=== PATIENT | female | born 1990 | race Caucasian/White ===

== ENCOUNTER 2019-09-21 19:41 | Emergency (ER) | payer OTHER ==
[2019-09-21] MEDS ORDERED: Adacel (T-DAP) 0.5 ML SYRINGE ONE (20:13)
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
== END 2019-09-21 21:17 | disposition home or self-care (01) ==
LOC: ERS 19:41
DX: S16.1XXA Strain of muscle, fascia and tendon at neck level, initial encounter (principal); S40.012A Contusion of left shoulder, initial encounter; S09.90XA Unspecified injury of head, initial encounter; Z23 Encounter for immunization; V59.9XXA Occupant (driver) (passenger) of pick-up truck or van injured in unspecified traffic accident, initial encounter
CPT/HCPCS: 70450; 72125; 90471; 90715

== ENCOUNTER 2020-03-16 15:50 | Outpatient (CLI) | payer OTHER ==
--- NOTE | 2020-03-16 16:39 | RAD ---
2 views of the abdomen: 03/16/2020 COMPARISON: None HISTORY: Constipation, right flank pain FINDINGS: Multiple calcifications in the left hemipelvis suggest phleboliths. The upper abdomen/lung bases are not fully evaluated on this examination limiting assessment for free intraperitoneal air. The bowel gas pattern appears nonobstructed. No significant calcification overlies expected region of either renal shadow. No acute osseous abnormality is evident. IMPRESSION: No acute findings. Follow-up CT may be beneficial if clinically warranted.
== END 2020-03-16 15:51 | disposition home or self-care (01) ==
LOC: BICRAD 15:50
PROVIDERS: ATTEND Physician Assistant Medical
DX: R10.11 Right upper quadrant pain (principal); K59.00 Constipation, unspecified
CPT/HCPCS: 74018; 74019

== ENCOUNTER 2020-04-27 08:07 | Outpatient (CLI) | payer OTHER ==
[2020-04-27 18:49] LABS: BHCG - Serum Negative (NEGATIVE)
[2020-04-27 18:50] LABS: Pregs Control Background? CLEAR/WHITE (CLR/WHITE); Pregs Control Bar Appear? YES (CONTROL BAR)
[2020-04-27 18:55] LABS: #Basophils 0.1 10x3/uL (0.0-0.2); #Eosinphils 0.1 10x3/uL (0.0-0.5); #Monocytes 0.3 10x3/uL (0.0-1.1); #Neutrophils 2.1 10x3/uL (1.5-8.4); %Basophils 1.2 % (0.0-2.0); %Lymphocytes 47.7 % (18.0-47.0); %Monocytes 6.7 % (0.0-10.0); %Neutrophils 43.2 % (40.0-75.0); Hemoglobin 13.4 g/dL (12.0-16.0); Mean Corpuscular HGB CONC 34.7 G/DL (32.0-36.0); Mean Corpuscular Hemoglobin 31.8 PG (27.0-33.0); Mean Corpuscular Volume 91.5 fl (80.0-100.0); Mean Platelet Volume 10.4 fl (7.4-10.4); Platelet Count 306 10x3/uL (130-400); RBC Distribution Width 11.9 % (11.5-14.5); Red Blood Cell (RBC) Count 4.22 10x6/uL (3.90-5.20); White Blood Cell (WBC) Count 4.9 10x3/uL (4.5-11.0)
[2020-04-27 18:56] LABS: ALT (SGPT) 16 U/L (8-55); AST (SGOT) 18 U/L (5-34); Albumin 4.5 g/dL (3.5-5.0); Alkaline Phosphatase 57 U/L (40-110); Bilirubin, Direct 0.2 mg/dL (0.1-0.3); Bilirubin, Total 0.6 mg/dL (0.2-1.2); Protein, Total 6.9 g/dL (6.0-8.3)
[2020-04-28 02:05] LABS: SARS-CoV-2 MS2 Positive; SARS-CoV-2 N Gene Negative; SARS-CoV-2 S Gene Negative; SARS-CoV-2 by NAA Not Detected (NotDetected); SARS-CoV-2 orf1ab Negative
== END 2020-04-27 08:08 | disposition home or self-care (01) ==
LOC: LABBT 08:07
PROVIDERS: ATTEND Surgery
DX: Z01.812 Encounter for preprocedural laboratory examination (principal); Z20.828 Contact with and (suspected) exposure to other viral communicable diseases; K80.20 Calculus of gallbladder without cholecystitis without obstruction
CPT/HCPCS: 80076; 84703; 85025; 87635; U0003

== ENCOUNTER 2020-05-01 07:32 | Day surgery (SDC) | payer OTHER ==
[2020-04-28 12:46] VITALS: BMI 23.6
[2020-05-01] MEDS ORDERED: cefOXitin Sodium/Dextrose 2 GM/50 ML BAG ONE (08:09)
[2020-05-01] MEDS ORDERED: Bupivacaine 0.25% HCL 30 ML VIAL ONE (09:13)
[2020-05-01] MEDS ORDERED: Lidocaine 1% w/Epinephrine 1:100K 20 ML VIAL ONE (09:13)
[2020-05-01] MEDS ORDERED: Midazolam HCl 2 mg/2 ml Vial ONE (09:13)
[2020-05-01] MEDS ORDERED: Fentanyl 100 MCG/2 ML VIAL ONE ×3 (09:13→11:26)
[2020-05-01] MEDS ORDERED: PROPOFOL 200 MG/20 ML VIAL ONE (10:02)
[2020-05-01] MEDS ORDERED: Rocuronium Bromide 10 MG/ML (10ML VIAL) ONE (10:02)
[2020-05-01] MEDS ORDERED: Lidocaine 1% PF 5 ML VIAL ONE (10:02)
[2020-05-01] MEDS ORDERED: PHENYLEPHRINE-NS 100 MCG/ML 10 ML SYRINGE ONE (10:02)
[2020-05-01] MEDS ORDERED: Dexamethasone 20 MG/5 ML VIAL ONE (10:02)
[2020-05-01] MEDS ORDERED: Ondansetron PF 4 MG/2 ML Vial ONE ×2 (10:02→10:59)
[2020-05-01] MEDS ORDERED: Ketorolac Tromethamine 30 MG/ML VIAL ONE (10:02)
[2020-05-01] MEDS ORDERED: Glycopyrrolate 0.2 MG/ML 5 ML SYRINGE ONE (10:02)
--- NOTE | 2020-05-01 11:34 | OP ---
DATE OF PROCEDURE: 05/01/2020 PREOPERATIVE DIAGNOSIS: Symptomatic cholelithiasis. PROCEDURE PERFORMED: Laparoscopic cholecystectomy. INDICATIONS: 29-year-old female who has been having right upper quadrant pain radiating to back, associated with nausea. She had an ultrasound showing small stones versus polyps in the gallbladder. FINDINGS: She had some adhesions to the gallbladder, very small caliber cystic duct. Normal LFTs. DESCRIPTION OF PROCEDURE: After informed consent was obtained, the patient was taken to the operating room, given general endotracheal anesthesia, placed in the supine position. Abdomen was prepped and draped in usual fashion. Local anesthesia was infiltrated subcutaneously and deep, and a subumbilical incision was performed. Subcu divided sharply. The fascia was grasped and 2 stay sutures of 0 Vicryl placed on either side of midline. Midline incised. Digital palpation revealed no local adhesions. A blunt 12 mm trocar inserted. Pneumoperitoneum was created to a pressure of 15 mmHg. A 0-degree laparoscope inserted under direct vision, three 5-mm ports were placed subcostally. Gallbladder grasped, advanced superiorly. Peritoneum lysed distally to reveal small cystic duct and artery. These were triply ligated with hemoclips and divided. The gallbladder removed from its fossa utilizing electrocautery. Placed an endosac, removed from the abdomen in an endosac. Hemostasis was assured. Trocars and retractors were removed. Fascia closed with interrupted 0 Vicryl suture. Skin closed with interrupted 4-0 Rapide. Dermabond applied. The patient tolerated the procedure well, transferred to Recovery in good condition. Sponge and needle count verified correct x2. Job ID: [id number]
[2020-05-01] MEDS ORDERED: HYDROcodone/Acetaminophen 5/325 mg Tablet ONE (11:37)
== END 2020-05-01 13:43 | disposition home or self-care (01) ==
LOC: SDC 07:32
PROVIDERS: ATTEND Surgery
PROC: 0FT44ZZ Resection of Gallbladder, Percutaneous Endoscopic Approach (ICD-10-PCS; principal; 2020-05-01)
DX: K80.10 Calculus of gallbladder with chronic cholecystitis without obstruction (principal); J45.909 Unspecified asthma, uncomplicated; Z79.899 Other long term (current) drug therapy; Z91.018 Allergy to other foods
CPT/HCPCS: 88304; J0694; J1100; J1885; J2250; J2405; J2704; J3010; S0020

== ENCOUNTER 2021-04-19 12:05 | Outpatient (CLI) | payer OTHER | END 2021-04-19 12:06 | disposition home or self-care (01) | LOC: BICULT 12:05 | PROVIDERS: ATTEND Physician Assistant Medical | DX: R10.11 Right upper quadrant pain (principal); R19.8 Other specified symptoms and signs involving the digestive system and abdomen; R53.83 Other fatigue; R14.0 Abdominal distension (gaseous) | CPT/HCPCS: 76770 ==